=== PATIENT | female | born 2000 | race Caucasian/White ===

== ENCOUNTER → 2021-06-05 | Outpatient (CLI) | payer OTHER ==
[~2021-06-05] MED LIST: CIPRO500 MG PO; IBUPROFEN600 MG PO; ZOFRAN ODT 4 MG4 MG SL
== END ==
LOC: LAB 15:36
DX: O03.9 Complete or unspecified spontaneous abortion without complication (principal)
CPT/HCPCS: 36415; 84702

== ENCOUNTER 2021-12-22 12:48 | Outpatient (CLI) | payer OTHER | END 2021-12-22 14:18 | disposition home or self-care (01) | LOC: GENOP 12:48 | DX: O47.03 False labor before 37 completed weeks of gestation, third trimester (principal); Z3A.28 28 weeks gestation of pregnancy | CPT/HCPCS: 59025 ==